=== PATIENT | female | born 1940 | race Caucasian/White ===

== ENCOUNTER 2020-06-13 16:48 | Emergency (ER) | payer BC, OTHER ==
[2020-06-13 17:35] VITALS: BP 158/76; PULSE 69; TEMP 98.6; BMI 31.3
[2020-06-13] MEDS ORDERED: DIPHTH,PERTUSS(ACELL),TET 0.5 ML DISP.SYRIN IM ONE ×2 (17:38→17:39)
== END 2020-06-13 20:20 | disposition home or self-care (01) ==
LOC: FER 16:48
PROC: 3E0234Z Introduction of Serum, Toxoid and Vaccine into Muscle, Percutaneous Approach (ICD-10-PCS; principal; 2020-06-13)
DX: S09.90XA Unspecified injury of head, initial encounter (principal); S00.83XA Contusion of other part of head, initial encounter
CPT/HCPCS: 70450-TC; 70486-TC; 72125-TC; 90715; 99285-25

== ENCOUNTER 2022-12-16 04:26 | Day surgery (SDC) | payer BC ==
[2022-12-14 15:37] VITALS: BMI 33.6
[2022-12-16 09:38] VITALS: TEMP 98
[2022-12-16 10:12] VITALS: BP 113/60; PULSE 60; RESP 15
== END 2022-12-16 10:20 | disposition home or self-care (01) ==
LOC: JASU-ENDO 04:26
PROVIDERS: ATTEND Internal Medicine Gastroenterology
PROC: 0DBL8ZX Excision of Transverse Colon, Via Natural or Artificial Opening Endoscopic, Diagnostic (ICD-10-PCS; 2022-12-16)
PROC: 3E0H8KZ Introduction of Other Diagnostic Substance into Lower GI, Via Natural or Artificial Opening Endoscopic (ICD-10-PCS; 2022-12-16)
PROC: 0DBH8ZX Excision of Cecum, Via Natural or Artificial Opening Endoscopic, Diagnostic (ICD-10-PCS; principal; 2022-12-16 08:30)
DX: D12.0 Benign neoplasm of cecum (principal); K63.5 Polyp of colon; K64.8 Other hemorrhoids; I10 Essential (primary) hypertension
CPT/HCPCS: 88305-TC

== ENCOUNTER 2022-12-30 05:28 | Day surgery (SDC) | payer BC ==
[2022-12-27 11:39] VITALS: BMI 33.6
[2022-12-30 09:03] VITALS: TEMP 97.8
[2022-12-30 09:39] VITALS: BP 107/61; PULSE 72; RESP 14
== END 2022-12-30 09:45 | disposition home or self-care (01) ==
LOC: JASU-ENDO 05:28
PROVIDERS: ATTEND Internal Medicine Gastroenterology
PROC: 0DB78ZX Excision of Stomach, Pylorus, Via Natural or Artificial Opening Endoscopic, Diagnostic (ICD-10-PCS; 2022-12-30)
PROC: 0DB68ZX Excision of Stomach, Via Natural or Artificial Opening Endoscopic, Diagnostic (ICD-10-PCS; 2022-12-30)
PROC: 0DB48ZX Excision of Esophagogastric Junction, Via Natural or Artificial Opening Endoscopic, Diagnostic (ICD-10-PCS; principal; 2022-12-30 09:30)
DX: K22.2 Esophageal obstruction (principal); K21.00 Gastro-esophageal reflux disease with esophagitis, without bleeding; K44.9 Diaphragmatic hernia without obstruction or gangrene; K29.50 Unspecified chronic gastritis without bleeding; K31.7 Polyp of stomach and duodenum; I10 Essential (primary) hypertension
CPT/HCPCS: 88305-TC; 88342-TC

== ENCOUNTER 2023-04-05 02:37 | Inpatient (IN) | payer OTHER, BC ==
[2023-04-05] MEDS ORDERED: FAMOTIDINE 20 MG/50 ML IVPB 20 MG/50 ML MG IVPB ONE ×2 (03:29→03:36)
[2023-04-05] MEDS ORDERED: LACTATED RINGERS SOLUTION 1000 ML INFUS.BAG IV ONE (03:29)
[2023-04-05] MEDS ORDERED: ONDANSETRON 4 MG/2 ML VIAL IVPUSH ONE (03:29)
[2023-04-05] MEDS ORDERED: ACETAMINOPHEN 1000 MG/100 ML BAG IVPB ONE (03:29)
[2023-04-05] MEDS ORDERED: ACETAMINOPHEN INJECTION 100 ML IVPB ONE (03:36)
[2023-04-05] MEDS ORDERED: ONDANSETRON 4 MG/2 ML VIAL ONE (03:36)
[2023-04-05 04:06] LABS: BASO % 0.6 % (0-2.0); EOS % 0.6 % (0-4.5); HEMATOCRIT 37.9 % (32.4-45.2); HEMOGLOBIN 12.9 GM/dL (10.7-15.3); LYMPH % 7.7 % (8-40); MCH 28.4 pg (25.7-33.7); MEAN CELL VOLUME 83.6 fl (80-96); MEAN PLT VOLUME 7.5 fl (7.5-11.1); MONO % 5.3 % (3.8-10.2); NEUT % 85.8 % (42.8-82.8); PLATELET COUNT 292 10^3/uL (134-434); RBC 4.54 M/mm3 (3.60-5.2); WHITE BLOOD COUNT 13.2 K/mm3 (4.0-10.0)
[2023-04-05 04:27] LABS: INR 1.01 (0.83-1.09); POTASSIUM 4.5 mmol/L (3.5-5.1); PROTHROMBIN TIME (PATIENT) 11.7 SEC (9.7-13.0)
[2023-04-05 04:29] LABS: ACTIVATED PTT 29.9 SECONDS (25.2-36.5); ALBUMIN 3.5 g/dl (3.4-5.0); BLOOD UREA NITROGEN 32.2 mg/dL (7-18); CALCIUM 9.5 mg/dL (8.5-10.1)
[2023-04-05 04:32] LABS: CREATININE 1.6 mg/dL (0.55-1.3)
[2023-04-05 04:34] LABS: BILIRUBIN,TOTAL 0.6 mg/dL (0.2-1); TOT PROT 6.8 g/dl (6.4-8.2)
[2023-04-05 04:45] LABS: LACTIC ACID 2.4 mmol/L (0.4-2.0)
[2023-04-05 07:10] LABS: EPI CELLS 8 /uL (0-25.1); HYALINE CASTS 0 /uL (0-3.1); URINE APPEARANCE CLEAR; URINE BACTERIA 54 /uL (0-1359); URINE BILIRUBIN NEGATIVE (NEGATIVE); URINE COLOR YELLOW; URINE GLUCOSE (UA) NEGATIVE (NEGATIVE); URINE KETONE NEGATIVE (NEGATIVE); URINE LEUK ESTERASE 1+ (NEGATIVE); URINE NITRITE NEGATIVE (NEGATIVE); URINE PROTEIN NEGATIVE (NEGATIVE); URINE RBC 10 /uL (0-23.9); URINE UROBILINOGEN 0.2 mg/dL (0.2-1.0); URINE WBC 45 /uL (0-25.8)
[2023-04-05] MEDS ORDERED: VANCOMYCIN 1,000 MG in DEXTROSE 5%-WATER - 250 ML IVPB ONE (07:13)
[2023-04-05] MEDS ORDERED: PIPERACILLIN/TAZOB 4.5 GM 4.5 GM in DEXTROSE 5%-WATER 100 ML IVPB ONE (07:13)
[2023-04-05] MEDS ORDERED: PIPERACILLIN/TAZOB 4.5 GM 4.5 GM/100 ML BAG IVPB ONE (09:35)
[2023-04-05] MEDS ORDERED: VANCOMYCIN 1 GRAM (PRE-DOCKED) 1,000 MG/250 ML BAG IVPB ONE (09:35)
[2023-04-05] MEDS ORDERED: LACTATED RINGERS SOLUTION 1,000 ML/1,000 ML INFUS.BAG IV SCH (10:45)
[2023-04-05] MEDS ORDERED: HEPARIN NA (PORCINE) 5,000 UNITS/ML 1ML VIAL ONE (15:50)
[2023-04-05] MEDS: HEPARIN NA (PORCINE) 5,000 UNITS/ML 1ML VIAL SQ SCH ×2 (15:54→21:33)
[2023-04-05 18:55] VITALS: BMI 34.4
[2023-04-06] MEDS: HEPARIN NA (PORCINE) 5,000 UNITS/ML 1ML VIAL SQ SCH ×3 (05:50→21:46)
[2023-04-06] MEDS: ATORVASTATIN CA 40 MG TABLET (FP) PO SCH (09:27)
[2023-04-06] MEDS: VERAPAMIL HCL 240 MG E.R. TABLET PO SCH (09:27)
[2023-04-06] MEDS: CEFTRIAXONE 1 GM in DEXTROSE 5%-WATER - 50 ML IVPB SCH (09:27)
[2023-04-06] MEDS ORDERED: ONDANSETRON 4 MG/2 ML VIAL IVPUSH ONE (10:36)
[2023-04-06 12:52] LABS: EOS % 1.2 % (0-4.5); HEMATOCRIT 34.3 % (32.4-45.2); HEMOGLOBIN 11.9 GM/dL (10.7-15.3); LYMPH % 12.1 % (8-40); MCHC 34.6 g/dl (32.0-36.0); MEAN CELL VOLUME 83.9 fl (80-96); MEAN PLT VOLUME 8.3 fl (7.5-11.1); MONO % 4.9 % (3.8-10.2); NEUT % 80.8 % (42.8-82.8); PLATELET COUNT 261 10^3/uL (134-434); RDW 15.2 % (11.6-15.6); WHITE BLOOD COUNT 9.7 K/mm3 (4.0-10.0)
[2023-04-06 13:14] LABS: POTASSIUM 4.1 mmol/L (3.5-5.1)
[2023-04-06 13:21] LABS: CALCIUM 9.9 mg/dL (8.5-10.1)
[2023-04-06 13:22] LABS: ALBUMIN 3.2 g/dl (3.4-5.0); BLOOD UREA NITROGEN 22.4 mg/dL (7-18); MAGNESIUM 2.2 mg/dL (1.8-2.4)
[2023-04-06 13:24] LABS: PHOSPHOROUS 2.6 mg/dL (2.5-4.9)
[2023-04-06 13:25] LABS: CREATININE 1.5 mg/dL (0.55-1.3)
[2023-04-06 13:26] LABS: BILIRUBIN,TOTAL 0.8 mg/dL (0.2-1); TOT PROT 6.2 g/dl (6.4-8.2)
[2023-04-06] MEDS: SODIUM CHLORIDE 1,000 ML IV SCH (14:03)
[2023-04-06] MEDS: FAMOTIDINE 20 MG TABLET PO SCH (14:04)
[2023-04-07] MEDS: SODIUM CHLORIDE 1,000 ML IV SCH ×2 (02:33→18:14)
[2023-04-07] MEDS: HEPARIN NA (PORCINE) 5,000 UNITS/ML 1ML VIAL SQ SCH ×3 (05:54→21:33)
[2023-04-07] MEDS: FAMOTIDINE 20 MG TABLET PO SCH (09:26)
[2023-04-07] MEDS: CEFTRIAXONE 1 GM in DEXTROSE 5%-WATER - 50 ML IVPB SCH (09:27)
[2023-04-07] MEDS: ATORVASTATIN CA 40 MG TABLET (FP) PO SCH (09:27)
[2023-04-07] MEDS: VERAPAMIL HCL 240 MG E.R. TABLET PO SCH (09:27)
[2023-04-07] MEDS ORDERED: SODIUM CHLORIDE 500 ML IV STA (09:45)
[2023-04-07 10:40] LABS: HEMATOCRIT 31.6 % (32.4-45.2); HEMOGLOBIN 10.6 GM/dL (10.7-15.3); MCH 28.7 pg (25.7-33.7); MCHC 33.5 g/dl (32.0-36.0); MEAN CELL VOLUME 85.9 fl (80-96); MEAN PLT VOLUME 8.1 fl (7.5-11.1); PLATELET COUNT 225 10^3/uL (134-434); RBC 3.68 M/mm3 (3.60-5.2); RDW 14.9 % (11.6-15.6); WHITE BLOOD COUNT 6.9 K/mm3 (4.0-10.0)
[2023-04-07 11:27] LABS: POTASSIUM 3.7 mmol/L (3.5-5.1)
[2023-04-07 12:03] LABS: ALBUMIN 2.9 g/dl (3.4-5.0); BILIRUBIN,TOTAL 0.5 mg/dL (0.2-1); BLOOD UREA NITROGEN 18.7 mg/dL (7-18); PHOSPHOROUS 2.2 mg/dL (2.5-4.9)
[2023-04-07 12:04] LABS: CREATININE 1.2 mg/dL (0.55-1.3); TOT PROT 5.5 g/dl (6.4-8.2)
[2023-04-07 12:06] LABS: CALCIUM 8.7 mg/dL (8.5-10.1)
[2023-04-07 12:07] LABS: MAGNESIUM 2.2 mg/dL (1.8-2.4)
[2023-04-08] MEDS: HEPARIN NA (PORCINE) 5,000 UNITS/ML 1ML VIAL SQ SCH ×3 (06:40→21:19)
[2023-04-08 09:08] LABS: HEMATOCRIT 32.4 % (32.4-45.2); HEMOGLOBIN 10.7 GM/dL (10.7-15.3); MCH 28.7 pg (25.7-33.7); MCHC 33.2 g/dl (32.0-36.0); MEAN CELL VOLUME 86.4 fl (80-96); MEAN PLT VOLUME 7.8 fl (7.5-11.1); PLATELET COUNT 228 10^3/uL (134-434); RBC 3.75 M/mm3 (3.60-5.2); RDW 14.8 % (11.6-15.6); WHITE BLOOD COUNT 6.8 K/mm3 (4.0-10.0)
[2023-04-08 09:45] LABS: CALCIUM 8.7 mg/dL (8.5-10.1)
[2023-04-08 09:47] LABS: ALBUMIN 2.9 g/dl (3.4-5.0); BLOOD UREA NITROGEN 13.6 mg/dL (7-18); CREATININE 1.2 mg/dL (0.55-1.3); PHOSPHOROUS 2.2 mg/dL (2.5-4.9)
[2023-04-08 09:48] LABS: TOT PROT 5.7 g/dl (6.4-8.2)
[2023-04-08 09:49] LABS: BILIRUBIN,TOTAL 0.4 mg/dL (0.2-1)
[2023-04-08] MEDS: CEFTRIAXONE 1 GM in DEXTROSE 5%-WATER - 50 ML IVPB SCH (10:12)
[2023-04-08] MEDS: VERAPAMIL HCL 240 MG E.R. TABLET PO SCH (10:12)
[2023-04-08] MEDS: FAMOTIDINE 20 MG TABLET PO SCH (10:13)
[2023-04-08] MEDS: ATORVASTATIN CA 40 MG TABLET (FP) PO SCH (10:13)
[2023-04-08] MEDS: SODIUM CHLORIDE 1,000 ML IV SCH (15:06)
[2023-04-08] MEDS ORDERED: NAPH,MB-DB/K PH,MBDB POWDER PACKET PO ONE (16:09)
[2023-04-09] MEDS: SODIUM CHLORIDE 1,000 ML IV SCH ×2 (02:13→16:10)
[2023-04-09] MEDS: HEPARIN NA (PORCINE) 5,000 UNITS/ML 1ML VIAL SQ SCH ×3 (06:31→21:09)
[2023-04-09 09:09] LABS: HEMATOCRIT 29.2 % (32.4-45.2); HEMOGLOBIN 10.4 GM/dL (10.7-15.3); MCH 29.9 pg (25.7-33.7); MCHC 35.8 g/dl (32.0-36.0); MEAN CELL VOLUME 83.7 fl (80-96); MEAN PLT VOLUME 7.9 fl (7.5-11.1); PLATELET COUNT 229 10^3/uL (134-434); RBC 3.49 M/mm3 (3.60-5.2); RDW 15.1 % (11.6-15.6)
[2023-04-09] MEDS: VERAPAMIL HCL 240 MG E.R. TABLET PO SCH (09:15)
[2023-04-09] MEDS: ATORVASTATIN CA 40 MG TABLET (FP) PO SCH (09:15)
[2023-04-09] MEDS: FAMOTIDINE 20 MG TABLET PO SCH (09:15)
[2023-04-09] MEDS: CEFTRIAXONE 1 GM in DEXTROSE 5%-WATER - 50 ML IVPB SCH (09:16)
[2023-04-09 09:20] LABS: POTASSIUM 3.9 mmol/L (3.5-5.1)
[2023-04-09 09:27] LABS: CALCIUM 8.4 mg/dL (8.5-10.1)
[2023-04-09 09:28] LABS: ALBUMIN 2.8 g/dl (3.4-5.0); BLOOD UREA NITROGEN 11.8 mg/dL (7-18)
[2023-04-09 09:32] LABS: BILIRUBIN,TOTAL 0.4 mg/dL (0.2-1); CREATININE 1.2 mg/dL (0.55-1.3); PHOSPHOROUS 2.5 mg/dL (2.5-4.9); TOT PROT 5.3 g/dl (6.4-8.2)
[2023-04-09] MEDS: ONDANSETRON 4 MG/2 ML VIAL IVPB PRN ×2 (10:03→18:09)
[2023-04-10] MEDS: HEPARIN NA (PORCINE) 5,000 UNITS/ML 1ML VIAL SQ SCH ×3 (06:32→22:57)
[2023-04-10] MEDS: ONDANSETRON 4 MG/2 ML VIAL IVPB PRN ×2 (07:10→16:48)
[2023-04-10 09:22] LABS: HEMATOCRIT 29.1 % (32.4-45.2); HEMOGLOBIN 9.9 GM/dL (10.7-15.3); MCH 29.1 pg (25.7-33.7); MCHC 34.2 g/dl (32.0-36.0); MEAN CELL VOLUME 85.2 fl (80-96); MEAN PLT VOLUME 7.9 fl (7.5-11.1); PLATELET COUNT 228 10^3/uL (134-434); RBC 3.42 M/mm3 (3.60-5.2); RDW 15.2 % (11.6-15.6); WHITE BLOOD COUNT 5.9 K/mm3 (4.0-10.0)
[2023-04-10 09:35] LABS: POTASSIUM 3.8 mmol/L (3.5-5.1)
[2023-04-10] MEDS: FAMOTIDINE 20 MG TABLET PO SCH (09:36)
[2023-04-10] MEDS: ATORVASTATIN CA 40 MG TABLET (FP) PO SCH (09:36)
[2023-04-10] MEDS: VERAPAMIL HCL 240 MG E.R. TABLET PO SCH (09:37)
[2023-04-10] MEDS: CEFTRIAXONE 1 GM in DEXTROSE 5%-WATER - 50 ML IVPB SCH (09:38)
[2023-04-10 09:39] LABS: ALBUMIN 2.7 g/dl (3.4-5.0); CALCIUM 8.6 mg/dL (8.5-10.1)
[2023-04-10 09:40] LABS: BLOOD UREA NITROGEN 9.5 mg/dL (7-18); MAGNESIUM 1.7 mg/dL (1.8-2.4)
[2023-04-10 09:42] LABS: CREATININE 1.2 mg/dL (0.55-1.3); PHOSPHOROUS 2.2 mg/dL (2.5-4.9)
[2023-04-10 09:44] LABS: BILIRUBIN,TOTAL 0.3 mg/dL (0.2-1); TOT PROT 5.2 g/dl (6.4-8.2)
[2023-04-10] MEDS ORDERED: MAGNESIUM SULF 50% (8.12 MEQ/2 ML-1 GM VIAL) IVPB ONE (11:30)
[2023-04-10] MEDS ORDERED: NAPH,MB-DB/K PH,MBDB POWDER PACKET PO ONE (11:30)
[2023-04-10] MEDS ORDERED: BISACODYL 5 MG TABLET.DR (FP) PO ONE (16:00)
[2023-04-10] MEDS ORDERED: PEG 3350/NA SULF BICARB CL/KCL 4000 ML SOLN.RECON PO ONE (17:00)
[2023-04-11 09:39] LABS: BASO % 0.8 % (0-2.0); HEMOGLOBIN 10.9 GM/dL (10.7-15.3); LYMPH % 15.3 % (8-40); MCH 28.2 pg (25.7-33.7); MCHC 32.9 g/dl (32.0-36.0); MEAN CELL VOLUME 85.6 fl (80-96); NEUT % 76.9 % (42.8-82.8); PLATELET COUNT 269 10^3/uL (134-434); RBC 3.85 M/mm3 (3.60-5.2); WHITE BLOOD COUNT 6.8 K/mm3 (4.0-10.0)
[2023-04-11] MEDS: ATORVASTATIN CA 40 MG TABLET (FP) PO SCH (09:59)
[2023-04-11] MEDS: VERAPAMIL HCL 240 MG E.R. TABLET PO SCH (09:59)
[2023-04-11] MEDS: CEFTRIAXONE 1 GM in DEXTROSE 5%-WATER - 50 ML IVPB SCH (09:59)
[2023-04-11] MEDS: FAMOTIDINE 20 MG TABLET PO SCH (09:59)
[2023-04-11 10:03] LABS: POTASSIUM 3.8 mmol/L (3.5-5.1)
[2023-04-11 10:12] LABS: BLOOD UREA NITROGEN 10.3 mg/dL (7-18)
[2023-04-11 10:15] LABS: CREATININE 1.2 mg/dL (0.55-1.3); PHOSPHOROUS 2.3 mg/dL (2.5-4.9)
[2023-04-11 10:17] LABS: CALCIUM 8.5 mg/dL (8.5-10.1)
[2023-04-11 10:18] LABS: MAGNESIUM 2.2 mg/dL (1.8-2.4)
[2023-04-11 13:51] VITALS: BP 157/80; PULSE 62; RESP 18; TEMP 97.7
== END 2023-04-11 16:30 | disposition home or self-care (01) | DRG 394 ==
LOC: JER 02:37 → JERBED 09:14 → J6S 17:38
PROVIDERS: ADMIT Internal Medicine; ATTEND Internal Medicine
PROC: 0DBK8ZX Excision of Ascending Colon, Via Natural or Artificial Opening Endoscopic, Diagnostic (ICD-10-PCS; principal; 2023-04-11 11:00)
DX: K55.9 Vascular disorder of intestine, unspecified (principal); N13.30 Unspecified hydronephrosis; N17.9 Acute kidney failure, unspecified; K52.9 Noninfective gastroenteritis and colitis, unspecified; I10 Essential (primary) hypertension; E78.5 Hyperlipidemia, unspecified; K80.20 Calculus of gallbladder without cholecystitis without obstruction; K64.8 Other hemorrhoids
CPT/HCPCS: 0241U-QW; 36415; 71045-TC-FY; 74174-TC; 74177-TC; 76705-TC; 80048; 80053; 81003; 82962; 83605; 83690; 83735; 84100; 84484; 85025; 85027; 85610; 85730; 86140; 86850; 86900; 86901; 87086; 87186; 88305-TC; 93005; 93010; 99285-25; J1644; Q9967

== ENCOUNTER 2023-05-22 09:32 | Inpatient (IN) | payer OTHER, BC ==
[2023-05-22 09:43] VITALS: BMI 32.8
[2023-05-22] MEDS ORDERED: ACETAMINOPHEN 1000 MG/100 ML BAG IVPB ONE (10:41)
[2023-05-22] MEDS ORDERED: ACETAMINOPHEN INJECTION 100 ML IVPB ONE (10:44)
[2023-05-22 11:03] LABS: BASO % 0.9 % (0-2.0); EOS % 1.1 % (0-4.5); HEMATOCRIT 34.7 % (32.4-45.2); HEMOGLOBIN 11.9 GM/dL (10.7-15.3); LYMPH % 8.9 % (8-40); MCHC 34.3 g/dl (32.0-36.0); MEAN CELL VOLUME 84.5 fl (80-96); MEAN PLT VOLUME 8.5 fl (7.5-11.1); MONO % 5.1 % (3.8-10.2); PLATELET COUNT 285 10^3/uL (134-434); RDW 15.5 % (11.6-15.6); WHITE BLOOD COUNT 8.7 K/mm3 (4.0-10.0)
[2023-05-22 11:21] LABS: POTASSIUM 3.9 mmol/L (3.5-5.1)
[2023-05-22 11:23] LABS: ALBUMIN 3.5 g/dl (3.4-5.0); CALCIUM 9.5 mg/dL (8.5-10.1)
[2023-05-22 11:24] LABS: MAGNESIUM 2.2 mg/dL (1.8-2.4)
[2023-05-22 11:26] LABS: CREATININE 1.9 mg/dL (0.55-1.3)
[2023-05-22] MEDS ORDERED: SODIUM CHLORIDE 0.9% 500 ML INFUS.BAG IV ONE ×2 (11:26→13:51)
[2023-05-22 11:28] LABS: BILIRUBIN,TOTAL 1.1 mg/dL (0.2-1); TOT PROT 6.7 g/dl (6.4-8.2)
[2023-05-22 14:10] LABS: EPI CELLS 21 /uL (0-25.1); HYALINE CASTS 1 /uL (0-3.1); URINE APPEARANCE CLEAR; URINE BACTERIA 63 /uL (0-1359); URINE BILIRUBIN NEGATIVE (NEGATIVE); URINE COLOR YELLOW; URINE GLUCOSE (UA) NEGATIVE (NEGATIVE); URINE KETONE NEGATIVE (NEGATIVE); URINE LEUK ESTERASE 1+ (NEGATIVE); URINE NITRITE NEGATIVE (NEGATIVE); URINE PROTEIN NEGATIVE (NEGATIVE); URINE RBC 19 /uL (0-23.9); URINE UROBILINOGEN 0.2 mg/dL (0.2-1.0); URINE WBC 124 /uL (0-25.8)
[2023-05-22] MEDS ORDERED: ACETAMINOPHEN 500 MG TABLET (FP) PO PRN (15:52)
[2023-05-22] MEDS ORDERED: ONDANSETRON 4 MG/2 ML VIAL IVPUSH PRN (15:53)
[2023-05-22] MEDS: LACTATED RINGERS SOLUTION 1,000 ML/1,000 ML INFUS.BAG IV SCH (16:23)
[2023-05-22] MEDS ORDERED: HEPARIN NA (PORCINE) 5,000 UNITS/ML 1ML VIAL ONE (21:22)
[2023-05-22] MEDS: HEPARIN NA (PORCINE) 5,000 UNITS/ML 1ML VIAL SQ SCH (21:28)
[2023-05-23] MEDS ORDERED: ACETAMINOPHEN INJECTION 100 ML IVPB ONE (00:41)
[2023-05-23] MEDS ORDERED: ONDANSETRON 4 MG/2 ML VIAL ONE (02:18)
[2023-05-23] MEDS ORDERED: PANTOPRAZOLE 40 MG TABLET PO ONE (07:50)
[2023-05-23] MEDS ORDERED: ASPIRIN 81 MG CHEWABLE TABLETS ONE (07:51)
[2023-05-23] MEDS ORDERED: HEPARIN NA (PORCINE) 5,000 UNITS/ML 1ML VIAL ONE (07:51)
[2023-05-23 08:24] LABS: BASO % 0.5 % (0-2.0); EOS % 2.2 % (0-4.5); HEMATOCRIT 29.4 % (32.4-45.2); HEMOGLOBIN 9.8 GM/dL (10.7-15.3); LYMPH % 17.1 % (8-40); MCH 28.8 pg (25.7-33.7); MCHC 33.2 g/dl (32.0-36.0); MEAN CELL VOLUME 86.8 fl (80-96); MEAN PLT VOLUME 8.6 fl (7.5-11.1); MONO % 5.6 % (3.8-10.2); NEUT % 74.6 % (42.8-82.8); PLATELET COUNT 216 10^3/uL (134-434); RBC 3.38 M/mm3 (3.60-5.2); RDW 14.6 % (11.6-15.6); WHITE BLOOD COUNT 6.9 K/mm3 (4.0-10.0)
[2023-05-23 09:02] LABS: POTASSIUM 4.1 mmol/L (3.5-5.1)
[2023-05-23 09:03] LABS: CALCIUM 8.7 mg/dL (8.5-10.1)
[2023-05-23 09:04] LABS: BLOOD UREA NITROGEN 29.7 mg/dL (7-18)
[2023-05-23 09:07] LABS: CREATININE 1.3 mg/dL (0.55-1.3)
[2023-05-23] MEDS: PANTOPRAZOLE 40 MG TABLET PO SCH (10:14)
[2023-05-23] MEDS: HEPARIN NA (PORCINE) 5,000 UNITS/ML 1ML VIAL SQ SCH ×2 (10:14→21:00)
[2023-05-23] MEDS: ASPIRIN COATED 81 MG TABLET.EC PO SCH (10:14)
[2023-05-23] MEDS: VERAPAMIL HCL 240 MG E.R. TABLET PO SCH (10:16)
[2023-05-23] MEDS: LACTATED RINGERS SOLUTION 1,000 ML/1,000 ML INFUS.BAG IV SCH ×2 (16:26→20:33)
[2023-05-23] MEDS: ATORVASTATIN CA 40 MG TABLET (FP) PO SCH (21:00)
[2023-05-24] MEDS: LACTATED RINGERS SOLUTION 1,000 ML/1,000 ML INFUS.BAG IV SCH ×2 (06:21→17:26)
[2023-05-24] MEDS: PANTOPRAZOLE 40 MG TABLET PO SCH (09:56)
[2023-05-24] MEDS: VERAPAMIL HCL 240 MG E.R. TABLET PO SCH (09:56)
[2023-05-24] MEDS: HEPARIN NA (PORCINE) 5,000 UNITS/ML 1ML VIAL SQ SCH ×2 (09:56→21:32)
[2023-05-24] MEDS: ASPIRIN COATED 81 MG TABLET.EC PO SCH (09:56)
[2023-05-24] MEDS ORDERED: FLU VACCINE (FLULAVAL) PF 60 MCG/0.5 ML SYRINGE 2023-2024 IM ONE (10:09)
[2023-05-24] MEDS: ATORVASTATIN CA 40 MG TABLET (FP) PO SCH (21:32)
[2023-05-25] MEDS: LACTATED RINGERS SOLUTION 1,000 ML/1,000 ML INFUS.BAG IV SCH (03:50)
[2023-05-25] MEDS ORDERED: BUPIVACAINE HCL/PF 0.5% (5MG/ML) 10 ML VIAL ONE (08:39)
[2023-05-25] MEDS ORDERED: ROCURONIUM BROMIDE 50 MG/5 ML SYRINGE ONE (09:01)
[2023-05-25] MEDS ORDERED: SUCCINYLCHOLINE CHLORIDE 200 MG/10 ML SYRINGE ONE (09:01)
[2023-05-25] MEDS ORDERED: PROPOFOL 40 ML ONE (09:01)
[2023-05-25] MEDS ORDERED: FENTANYL CITRATE/PF 50 MCG/ML VIAL ONE (09:02)
[2023-05-25] MEDS ORDERED: MIDAZOLAM HCL 2 MG/2 ML SINGLE DOSE VIAL ONE (09:02)
[2023-05-25] MEDS ORDERED: LACTATED RINGERS SOLUTION 1,000 ML IV SCH (09:15)
[2023-05-25] MEDS ORDERED: SODIUM CHLORIDE 0.9% P/F 10 ML VIAL IJ ONE ×2 (09:19→09:49)
[2023-05-25] MEDS ORDERED: ONDANSETRON 4 MG/2 ML VIAL ONE (09:19)
[2023-05-25] MEDS ORDERED: DEXAMETHASONE SOD PHOSPHATE 4 MG/1 ML VIAL ONE (09:19)
[2023-05-25] MEDS ORDERED: LIDOCAINE HCL/PF 2% SDV 5ML VIAL ONE (09:19)
[2023-05-25] MEDS ORDERED: KETOROLAC TROMETHAMINE 30 MG/1 ML VIAL ONE (09:19)
[2023-05-25] MEDS ORDERED: METOCLOPRAMIDE HCL INJECTION 10 MG/2 ML VIAL ONE (09:19)
[2023-05-25] MEDS ORDERED: ceFAZolin SODIUM 1 GM VIAL IVPB ONE (09:39)
[2023-05-25] MEDS ORDERED: HYDROmorphone HCl 2 MG/ML VIAL ONE (09:48)
[2023-05-25] MEDS ORDERED: BUPIVACAINE HCL/PF 0.5% (5MG/ML) 10 ML VIAL IJ ONE (09:50)
[2023-05-25] MEDS ORDERED: ACETAMINOPHEN INJECTION 100 ML IVPB ONE (09:52)
[2023-05-25] MEDS ORDERED: SUGAMMADEX SODIUM 200 MG/2 ML VIAL ONE (10:38)
[2023-05-25] MEDS ORDERED: KETOROLAC TROMETHAMINE 15 MG/ML VIAL IVPUSH PRN (11:14)
[2023-05-25] MEDS ORDERED: traMADol HCL 50 MG TABLET PO PRN (11:18)
[2023-05-25] MEDS ORDERED: ONDANSETRON 4 MG/2 ML VIAL IVPUSH PRN (11:27)
[2023-05-25] MEDS: LACTATED RINGERS SOLUTION 1,000 ML IV SCH (11:45)
[2023-05-25 13:12] LABS: HEMATOCRIT 31.8 % (32.4-45.2); HEMOGLOBIN 10.9 GM/dL (10.7-15.3); MCH 29.1 pg (25.7-33.7); MCHC 34.2 g/dl (32.0-36.0); MEAN CELL VOLUME 85.1 fl (80-96); MEAN PLT VOLUME 8.4 fl (7.5-11.1); PLATELET COUNT 226 10^3/uL (134-434); RBC 3.74 M/mm3 (3.60-5.2); RDW 15.1 % (11.6-15.6); WHITE BLOOD COUNT 8.2 K/mm3 (4.0-10.0)
[2023-05-25 13:14] LABS: INR 1.11 (0.83-1.09); PROTHROMBIN TIME (PATIENT) 12.9 SEC (9.7-13.0)
[2023-05-25] MEDS: PANTOPRAZOLE 40 MG TABLET PO SCH (13:22)
[2023-05-25] MEDS: ASPIRIN COATED 81 MG TABLET.EC PO SCH (13:22)
[2023-05-25] MEDS: VERAPAMIL HCL 240 MG E.R. TABLET PO SCH (13:23)
[2023-05-25 14:00] LABS: POTASSIUM 4.6 mmol/L (3.5-5.1)
[2023-05-25 14:01] LABS: CALCIUM 9.4 mg/dL (8.5-10.1)
[2023-05-25 14:02] LABS: BLOOD UREA NITROGEN 12.2 mg/dL (7-18)
[2023-05-25 14:04] LABS: CREATININE 1.3 mg/dL (0.55-1.3)
[2023-05-25 14:06] LABS: BILIRUBIN,TOTAL 0.7 mg/dL (0.2-1); TOT PROT 5.7 g/dl (6.4-8.2)
[2023-05-25 14:13] LABS: ANISOCYTOSIS 2+; MACROCYTOSIS 0; OVALOCYTE 2+
[2023-05-25] MEDS: ACETAMINOPHEN 1000 MG/100 ML BAG IVPB SCH ×2 (17:44→22:11)
[2023-05-25] MEDS ORDERED: HEPARIN NA (PORCINE) 5,000 UNITS/ML 1ML VIAL SQ SCH (22:00)
[2023-05-25] MEDS ORDERED: ATORVASTATIN CA 40 MG TABLET (FP) PO SCH (22:00)
[2023-05-25 23:01] VITALS: RESP 16
[2023-05-26] MEDS: LACTATED RINGERS SOLUTION 1,000 ML IV SCH (04:16)
[2023-05-26] MEDS: ACETAMINOPHEN 1000 MG/100 ML BAG IVPB SCH ×2 (05:24→11:13)
[2023-05-26 06:35] VITALS: BP 125/62; PULSE 63; TEMP 97.8
[2023-05-26 09:37] LABS: HEMATOCRIT 31.8 % (32.4-45.2); HEMOGLOBIN 10.8 GM/dL (10.7-15.3); MCH 29.1 pg (25.7-33.7); MCHC 33.9 g/dl (32.0-36.0); MEAN CELL VOLUME 85.8 fl (80-96); MEAN PLT VOLUME 8.8 fl (7.5-11.1); RDW 15.1 % (11.6-15.6)
[2023-05-26 09:40] LABS: WHITE BLOOD COUNT 10.6 K/mm3 (4.0-10.0)
[2023-05-26 09:51] LABS: POTASSIUM 4.1 mmol/L (3.5-5.1)
[2023-05-26] MEDS ORDERED: VERAPAMIL HCL 240 MG E.R. TABLET PO SCH (10:00)
[2023-05-26] MEDS ORDERED: ASPIRIN COATED 81 MG TABLET.EC PO SCH (10:00)
[2023-05-26] MEDS ORDERED: PANTOPRAZOLE 40 MG TABLET PO SCH (10:00)
[2023-05-26 10:03] LABS: ALBUMIN 2.8 g/dl (3.4-5.0); BLOOD UREA NITROGEN 15.8 mg/dL (7-18)
[2023-05-26 10:06] LABS: CREATININE 1.5 mg/dL (0.55-1.3)
[2023-05-26 10:08] LABS: BILIRUBIN,TOTAL 0.7 mg/dL (0.2-1); TOT PROT 5.3 g/dl (6.4-8.2)
[2023-05-26 11:43] LABS: ANISOCYTOSIS 0; HELMET CELLS 0; HOWELL-JOLLY BODIES 0; MACROCYTOSIS 0; OVALOCYTE 0; ROULEAU 0; SICKELED CELLS 0; TARGET CELLS 0; TEAR DROP CELLS 0; TOXIC GRANULATION 0
[2023-05-26 11:45] LABS: PLATELET COUNT 221 10^3/uL (134-434)
== END 2023-05-26 15:12 | disposition home or self-care (01) | DRG 418 ==
LOC: JER 09:32 → JERBED 14:18 → OBSVTOIN 05-23 13:14 → J5S 05-23 18:09
PROVIDERS: ADMIT Internal Medicine; ATTEND Internal Medicine
PROC: 0FT44ZZ Resection of Gallbladder, Percutaneous Endoscopic Approach (ICD-10-PCS; principal; 2023-05-25 10:30)
DX: K80.12 Calculus of gallbladder with acute and chronic cholecystitis without obstruction (principal); N17.9 Acute kidney failure, unspecified; R10.11 Right upper quadrant pain; I10 Essential (primary) hypertension; E78.5 Hyperlipidemia, unspecified
CPT/HCPCS: 36415; 76705-TC; 80048; 80053; 81003; 83690; 83735; 84484; 85025; 85610; 86850; 86900; 86901; 87086; 93005; 93010; 94760; 99285-25; G0378; J1644

== ENCOUNTER 2023-12-23 00:25 | Emergency (ER) | payer OTHER, BC ==
[2023-12-23 00:29] VITALS: BMI 32.8
[2023-12-23 02:22] LABS: BASO % 0.4 % (0-2.0); EOS % 0.2 % (0-4.5); HEMATOCRIT 36.2 % (32.4-45.2); HEMOGLOBIN 12.5 GM/dL (10.7-15.3); LYMPH % 4.5 % (8-40); MCH 28.2 pg (25.7-33.7); MCHC 34.4 g/dl (32.0-36.0); MEAN CELL VOLUME 82.1 fl (80-96); MEAN PLT VOLUME 7.9 fl (7.5-11.1); MONO % 5.6 % (3.8-10.2); NEUT % 89.3 % (42.8-82.8); PLATELET COUNT 243 10^3/uL (134-434); RBC 4.41 M/mm3 (3.60-5.2); RDW 15.2 % (11.6-15.6); WHITE BLOOD COUNT 16.3 K/mm3 (4.0-10.0)
[2023-12-23] MEDS ORDERED: ONDANSETRON 4 MG/2 ML VIAL ONE (02:24)
[2023-12-23] MEDS ORDERED: ACETAMINOPHEN INJECTION 100 ML IVPB ONE (02:24)
[2023-12-23 02:27] LABS: PROTHROMBIN TIME (PATIENT) 11.5 SEC (9.7-13.0)
[2023-12-23 02:29] LABS: ACTIVATED PTT 27.4 SECONDS (25.2-36.5)
[2023-12-23] MEDS: ONDANSETRON 4 MG/2 ML VIAL IVPUSH ONE (02:39)
[2023-12-23] MEDS: SODIUM CHLORIDE 0.9% 500 ML INFUS.BAG IV ONE (02:39)
[2023-12-23] MEDS: ACETAMINOPHEN 1000 MG/100 ML BAG IVPB ONE (02:39)
[2023-12-23 02:40] LABS: EPI CELLS 33 /uL (0-25.1); HYALINE CASTS 1 /uL (0-3.1); PH,URINE 5.5 (5.0-8.0); URINE APPEARANCE CLEAR; URINE BACTERIA 54 /uL (0-1359); URINE BILIRUBIN NEGATIVE (NEGATIVE); URINE COLOR YELLOW; URINE GLUCOSE (UA) NEGATIVE (NEGATIVE); URINE KETONE NEGATIVE (NEGATIVE); URINE LEUK ESTERASE 2+ (NEGATIVE); URINE NITRITE NEGATIVE (NEGATIVE); URINE PROTEIN NEGATIVE (NEGATIVE); URINE RBC 31 /uL (0-23.9); URINE UROBILINOGEN 0.2 mg/dL (0.2-1.0); URINE WBC 121 /uL (0-25.8)
[2023-12-23 02:48] LABS: ALBUMIN 3.5 g/dl (3.4-5.0); BLOOD UREA NITROGEN 32.2 mg/dL (7-18); CALCIUM 9.5 mg/dL (8.5-10.1)
[2023-12-23 02:51] LABS: CREATININE 1.3 mg/dL (0.55-1.3)
[2023-12-23 02:52] LABS: TOT PROT 6.9 g/dl (6.4-8.2)
[2023-12-23 02:53] LABS: BILIRUBIN,TOTAL 0.8 mg/dL (0.2-1)
[2023-12-23 05:48] VITALS: RESP 18; TEMP 98
[2023-12-23 07:55] VITALS: BP 127/76; PULSE 71
== END 2023-12-23 08:21 | disposition home or self-care (01) ==
LOC: JER 00:25
PROC: 3E033NZ Introduction of Analgesics, Hypnotics, Sedatives into Peripheral Vein, Percutaneous Approach (ICD-10-PCS; principal; 2023-12-23)
PROC: 3E033GC Introduction of Other Therapeutic Substance into Peripheral Vein, Percutaneous Approach (ICD-10-PCS; 2023-12-23)
DX: R10.31 Right lower quadrant pain (principal); K52.9 Noninfective gastroenteritis and colitis, unspecified; R11.2 Nausea with vomiting, unspecified
CPT/HCPCS: 36415; 74177-TC; 80053; 81003; 83605; 83690; 83735; 84484; 85025; 85610; 85730; 87086; 93005; 93010; 99285-25; J0131

== ENCOUNTER 2024-01-24 05:13 | Day surgery (SDC) | payer OTHER, BC ==
[2024-01-23 13:15] VITALS: BMI 31.4
[2024-01-24 11:08] VITALS: BP 107/63; PULSE 65; RESP 17; TEMP 97.8
== END 2024-01-24 11:39 | disposition home or self-care (01) ==
LOC: JASU-ENDO 05:13
PROVIDERS: ATTEND Internal Medicine Gastroenterology
PROC: 0D9H8ZX Drainage of Cecum, Via Natural or Artificial Opening Endoscopic, Diagnostic (ICD-10-PCS; principal; 2024-01-24 09:00)
DX: K52.9 Noninfective gastroenteritis and colitis, unspecified (principal); K64.8 Other hemorrhoids; K63.3 Ulcer of intestine
CPT/HCPCS: 88305-TC

== ENCOUNTER 2024-12-25 16:29 | Emergency (ER) | payer OTHER, BC ==
[2024-12-25 16:50] VITALS: BMI 34.0
[2024-12-25 17:54] LABS: ABSOLUTE IMMATURE GRANULOCYTES 0.02 x10^3/uL (0.0-0.031); BASOPHILS # 0.06 x10^3/uL (0.01-0.08); EOSINOPHIL % 1.1 % (0.7-5.8); EOSINOPHILS # 0.07 x10^3/uL (0.04-0.36); MCHC 31.6 g/dl (32.2-35.5); MEAN CELL VOLUME 87.3 fl (79.4-94.8); MEAN PLT VOLUME 9.6 fl (9.4-12.3); MONOCYTE # 0.38 x10^3/uL (0.24-0.86); MONOCYTE % 6.1 % (4.7-12.5); RDW 13.9 % (12.5-17.0)
[2024-12-25 18:06] LABS: INR 0.96 (0.83-1.09); PROTHROMBIN TIME (PATIENT) 10.6 SEC (9.7-13.0)
[2024-12-25 18:08] LABS: ACTIVATED PTT 30.4 SECONDS (25.2-36.5)
[2024-12-25 18:14] LABS: CO2 28.0 mmol/L (21-32); GLUCOSE,RANDOM 103.0 mg/dL (74-106)
[2024-12-25 18:17] LABS: CREATININE 1.1 mg/dL (0.55-1.3); SGPT/ALT 25.0 U/L (13-61)
[2024-12-25 18:18] LABS: SGOT/AST 25.0 U/L (15-37)
[2024-12-25 18:19] LABS: TOT PROT 6.8 g/dl (6.4-8.2)
[2024-12-25 18:20] LABS: ALK PHOS 126.0 U/L (45-117)
[2024-12-25] MEDS: SODIUM CHLORIDE 0.9% 500 ML INFUS.BAG IV ONE (19:37)
[2024-12-25 19:44] VITALS: BP 122/79; PULSE 88; RESP 17; TEMP 97.6
[2024-12-25 20:05] LABS: HCV DIAGNOSTIC IN-HOUSE W/RFLX NON-REACTIVE (NONREACTIVE); HIV INTERPRETATION NEGATIVE (NEGATIVE)
== END 2024-12-25 19:45 | disposition home or self-care (01) ==
LOC: JER 16:29
DX: R11.2 Nausea with vomiting, unspecified (principal); R19.7 Diarrhea, unspecified; R42 Dizziness and giddiness; R53.1 Weakness; R07.89 Other chest pain; R63.0 Anorexia; R06.02 Shortness of breath
CPT/HCPCS: 36415; 80053; 84484; 85025; 85610; 85730; 86803; 87389; 93005; 93010; 99284-25